=== PATIENT | female | born 1975 | race Caucasian/White ===

== ENCOUNTER 2021-11-04 14:30 | Outpatient (RCR) | payer OTHER, SELFPAY | END 2021-11-28 14:21 | disposition home or self-care (01) | PROVIDERS: Visit Provider Physician Assistant | DX: S46.211A Strain of muscle, fascia and tendon of other parts of biceps, right arm, initial encounter (principal); Z51.89 Encounter for other specified aftercare | CPT/HCPCS: 97110; 97140; 97162 ==

== ENCOUNTER 2022-09-05 09:00 | Outpatient (RCR) | payer OTHER, SELFPAY | END 2022-09-05 12:34 | disposition home or self-care (01) | PROVIDERS: PCP Physician Assistant; Visit Provider Physician Assistant | DX: M25.531 Pain in right wrist (principal); Z51.89 Encounter for other specified aftercare | CPT/HCPCS: 97033; 97035; 97110; 97140; 97165; 97535; L3806; L3933; X5282 ==

== ENCOUNTER 2022-10-10 10:01 | Outpatient (CLI) | payer OTHER, SELFPAY ==
--- NOTE | 2022-10-10 10:15 | MR_ITS ---
[facility] [address] [facility] [address] Phone:?[phone] Fax:?[phone] Referring Physician Information: Marshall Cortez [address] [facility] [address] Phone:?[phone] Fax:?[phone] Patient:Carlin Barnes D.O.B:?1975 Sex:?Female Phone:?[phone] [facility] MRN:?[id number] Exam Date:?10/10/2022 EXAM: MRI of the RIGHT SHOULDER, without contrast CLINICAL: Right shoulder pain. Evaluate for rotator cuff tear. COMPARISONS: X-ray dated 09/29/2022. TECHNICAL: Multiplanar multisequence MRI of the right shoulder was obtained. SEDATION: None. CONTRAST: None. FINDINGS: Rotator cuff: Supraspinatus/Infraspinatus: There is mild to moderate tendinosis of the distal supraspinatus and infraspinatus tendons with mild to moderate superimposed partial interstitial insertional tearing of the distal supraspinatus tendon seen on coronal series 4 images 10-11. Minimal focal partial interstitial tearing of the distal infraspinatus tendon on coronal series 4 image 14. No significant fatty atrophy of the muscle bellies. Teres minor: No tendinosis, tear or atrophy. Subscapularis: Mild tendinosis of the distal tendon. No significant tendon tear and no significant fatty atrophy of the muscle belly. Bursae: Subacromial-subdeltoid: No significant bursal fluid. Subcoracoid: No significant bursal fluid. Coracoacromial arch: Acromion morphology: Type II. No os acromiale. Acromiohumeral space: Within normal limits. Coracohumeral space: Within normal limits. Biceps tendon, long head: Mild tendinosis of the intra-articular tendon. No significant tendon tear or displacement. Glenohumeral joint: Physiologic volume of joint fluid. Articular cartilage: No discrete chondral defects identified. Capsule: No convincing evidence of capsular thickening or injury. Labrum: No discrete labral tear identified. No perilabral cyst identified. Bones: No suspicious marrow signal alteration, fracture or dislocation. Acromioclavicular joint: Mild changes of arthrosis. No AC joint injury/widening. IMPRESSION: 1. Mild to moderate tendinosis with superimposed partial interstitial insertional tearing of the distal supraspinatus and infraspinatus tendons as above. Mild subscapularis tendinosis. No full-thickness or retracted rotator cuff tendon tear. 2. Mild tendinosis of the intra-articular long head biceps tendon. 3. Mild AC joint arthrosis. 4. No evidence of fracture. JCZ Electronically signed on 10/14/2022 8:25:00 AM by Simeon Ty D.O.
== END 2022-10-10 10:02 | disposition home or self-care (01) ==
LOC: MRI 10:02
PROVIDERS: PCP Nurse Practitioner Family; Visit Provider Nurse Practitioner Family
DX: M25.511 Pain in right shoulder (principal); M75.101 Unspecified rotator cuff tear or rupture of right shoulder, not specified as traumatic; M19.011 Primary osteoarthritis, right shoulder
CPT/HCPCS: 73221

== ENCOUNTER 2022-12-26 12:43 | Outpatient (CLI) | payer OTHER, SELFPAY ==
--- NOTE | 2022-12-26 13:00 | CRLHL7_ITS ---
For Patients: As a result of the Century Cures Act, medical imaging exams and procedure reports are released immediately into your electronic medical record. You may view this report before your referring provider. If you have questions, please contact your health care provider. BILATERAL SCREENING MAMMOGRAM WITH COMPUTER-AIDED DETECTION TECHNIQUE: CC and MLO views were obtained. These mammographic images have been obtained using full-field digital technique. These mammographic images were interpreted with the benefit of computer-aided detection. COMPARISON FILM: 07/22/21, 07/11/20. FINDINGS: There are scattered areas of fibroglandular density IMPRESSION: There is no radiographic evidence for malignancy. ASSESSMENT: BI-RADS Category 1: Negative RECOMMENDATION: Routine screening mammogram in 1 year. A lay language report of this examination will be provided to the patient. Ronnie Diallo M.D. Diagnostic Radiologist [email or web address] JONH/ginny gross/Dictated by: Ronnie Diallo MD @ 12/29/2022 10:08:00 AM (Electronically Signed)
== END 2022-12-26 12:44 | disposition home or self-care (01) ==
LOC: MAMMO 12:44
PROVIDERS: PCP Nurse Practitioner Family; Visit Provider Nurse Practitioner Family
DX: Z12.31 Encounter for screening mammogram for malignant neoplasm of breast (principal)
CPT/HCPCS: 77063; 77067

== ENCOUNTER 2023-01-02 13:28 | Outpatient (CLI) | payer OTHER, SELFPAY | END 2023-01-02 13:29 | disposition home or self-care (01) | PROVIDERS: PCP Nurse Practitioner Family; Visit Provider Nurse Practitioner Family | DX: N92.1 Excessive and frequent menstruation with irregular cycle (principal) | CPT/HCPCS: 84443; 85025 ==

== ENCOUNTER 2023-01-12 10:34 | Outpatient (CLI) | payer OTHER, SELFPAY ==
--- NOTE | 2023-01-12 10:45 | CRLHL7_ITS ---
For Patients: As a result of the Century Cures Act, medical imaging exams and procedure reports are released immediately into your electronic medical record. You may view this report before your referring provider. If you have questions, please contact your health care provider. INDICATION: heavy and frequent bleeding COMPARISON: none TECHNIQUE: 2D gallagher scale and color Doppler images were acquired of the pelvis using a transabdominal and transvaginal approach. FINDINGS: Sonographic images demonstrate a normal size and smooth outer contour of the uterus. Uterus measures 11.2 cm in length by 4.7 cm in AP diameter by 5.6 cm in transverse dimension. The myometrium has a normal uniform echotexture. The endometrial lining measures 10 mm in composite thickness. The right ovary measures 4.8 x 2.1 x 3.4 cm in size and the left ovary measures 3.3 x 1.9 x 1.5 cm. Dominant follicle right ovary is present measuring 1.5 cm. The ovaries demonstrate normal arterial and venous blood flow on color Doppler analysis. There are no suspicious fluid collections within the cul-de-sac. IMPRESSION: Endometrial thickness 1 cm. No endometrial fluid or uterine fibroid. Dictated by Ronnie Diallo MD @ 01/14/2023 7:01:36 AM (Electronically Signed)
== END 2023-01-12 10:35 | disposition home or self-care (01) ==
PROVIDERS: PCP Nurse Practitioner Family; Visit Provider Nurse Practitioner Family
DX: N92.1 Excessive and frequent menstruation with irregular cycle (principal); R93.89 Abnormal findings on diagnostic imaging of other specified body structures
CPT/HCPCS: 76830; 76856

== ENCOUNTER 2023-03-06 14:00 | Outpatient (RCR) | payer OTHER, SELFPAY | END 2023-06-23 14:44 | disposition home or self-care (01) | PROVIDERS: PCP Nurse Practitioner Family; Visit Provider Orthopaedic Surgery Sports Medicine | DX: M75.01 Adhesive capsulitis of right shoulder (principal); M25.511 Pain in right shoulder; Z74.09 Other reduced mobility; R29.898 Other symptoms and signs involving the musculoskeletal system; Z51.89 Encounter for other specified aftercare | CPT/HCPCS: 97110; 97140; 97161 ==

== ENCOUNTER 2023-04-28 09:16 | Outpatient (CLI) | payer OTHER, SELFPAY | END 2023-04-28 09:17 | disposition home or self-care (01) | PROVIDERS: PCP Nurse Practitioner Family; Visit Provider Nurse Practitioner Family | DX: I10 Essential (primary) hypertension (principal); Z83.49 Family history of other endocrine, nutritional and metabolic diseases | CPT/HCPCS: 80048; 84443 ==

== ENCOUNTER 2023-06-29 07:03 | Outpatient (CLI) | payer OTHER, SELFPAY ==
--- OUTSIDE RECORDS SUMMARY | 2023-06-29 07:05 | XMS_ITS | Clinical Summary ---
Author Name Unknown Organization [facility] Address [place], [place] [address] Care Team Providers Care Hide Worker Name Role Phone Unavailable Primary Care Provider Unavailabl e Allergies Active Allergy Reactions Criticality Noted Date Comments Amoxicillin-Pot Clavulanate Diarrhea 03/12/19 23 Venlafaxine Analogues Dizziness 09/08/2007 Medications Medication Sig Dispensed Refills Start Date End Date Status busPIRone (BUSPAR) 15 mg tabletIndications:Dys thymic disorder Take 1 Tablet (15 mg) by mouth 2 times daily. 180 Tablet 3 07/18/2021 Active SUMAtriptan (IMITREX) 50 mg tabletIndications:Men strual migraine without status migrainosus, not intractable TAKE 1 TO 2 TABLETS BY MOUTH EVERY 2 HOURS IF NEEDED FOR MIGRAINE, MAX DOSE 200MG (4 TABLETS) PER DAY 27 Tablet 5 07/18/2021 Active buPROPion (WELLBUTRIN XL) 150 mg Extended-Release tabletIndications:Dys thymic disorder TAKE 1 TABLET BY MOUTH IN THE MORNING 90 Tablet 09/18/2022 Active Active Problems Problem Noted Date Diagnosed Date ASCUS of cervix with negative high risk HPV 03/2020 Overview: 01/10/2004 LSIL 01/29/2004 [place]: VANESAS I 05/20/2005 NIL 08/18/2006 NIL 11/17/2007 NIL 04/20/2009 NIL 11/13/2015 NIL/HPV Negative 07/11/2020 ASCUS/HPV Negative Plan: Pap/HPV due 07/2023 Chondromalacia of patellofemoral joint 4 Patellofemoral pain syndrome 10/28/2013 Vitamin D deficiency 03/18/2013 Dysthymic disorder 02/23/2007 Migraine, unspecified, witho ut mention of intractable migraine without mention of status migrainosus 05/01/2006 Allergic rhinitis, cause unspecified 05/01/2006 Resolved Problems Problem Noted Date Diagnosed Date Resolved Date Dysthymic disorder 06/09/2013 5 Supervision of other normal 04/07/2011 06/23/2019 Panic disorder without agoraphobia 10/20/2007 05/22/2014 Major depressive disorder, r ecurrent episode, moderate 10/20/2007 05/22/2014 Social phobia 10/20/2007 05/22/2014 Anxiety state, unspecified 05/01/2006 0 02/23/2007 Depressive disorder, not elsewhere classified 05/02/19 07 02/23/2007 Immunizations Name Administration Dates Next Due COVID-19 vaccine ([employer] NTVidly 30mcg/0.3mL) PF, MDV 02/06/2021,03/27/2020,03/06/2020 Influenza, IIV3 (Age >=3 years) 02/24/2013 Influenza, IIV4 04/12/2018, 7,11/13/2015,01/13/20 15 Influenza, Injectable, Mdck, Quadrivalent, W/preservative 11/26/2020 MMR 04/12/2018 Td (Age >=7 Years) 01/10/2004 Tdap 07/11/2020,01/02/2010 Family History Medical History Relation Name Comments Alcoholism Brother Depression Brother Multiple sclerosis Brother Other Father inclusion body myositis Sjogren's syndrome Father Lupus Maternal Aunt Multiple sclerosis Maternal Aunt Alcohol/Drug Maternal Grandfather Other Maternal Grandmother Alzheim ers; her four sisters had same Multiple sclerosis Maternal Uncle Depression Mother Heart Disease Mother pacemaker Hypertension Mother Seizures Mother and maybe aneur ysm? Diabetes Other Alcohol/Drug Paternal Grandfather Bipolar disorder Sister Hypothyroidism Sister Anesthesia Malignant Hyperthermia No Family History Cancer-breast No Family History Cancer-ovarian No Family History Relation Name Status Comments Brother Father Maternal Aunt Maternal Grandfather Maternal Grandmother Maternal Uncle Mother Other Paternal Grandfather Sister Social History Tobacco Use Types Packs/Day Years Used Date Smoking Tobacco: Former Cigarettes 0.5 3 0 09/10/2007 - 09/09/2010 Smokeless Tobacco: Never Tobacco Cessation:Counseling Given: Yes Alcohol Use Standard Drinks/Week Comments Yes 0 (1 standard drink = 0.6 oz pur e alcohol) 2 drinks per week PHQ-2 Answer Date Recorded PHQ-2 TOTAL SCORE 2 07/18/2021 Social Connections Answer Date Recorded Frequency of Communication with Friends and Fami ly Not on file 03/12/2023 Financial Resource Strain Answer Date R ecorded Difficulty of Paying Living Expenses 3 03/11/2022 Difficulty of Paying Living Expenses Not on file 03/11/2022 Food Insecurity Answer Date Recorded Worried About Running Out of Food in the Last Ye ar 1 03/11/2022 Transportation Needs Answer Date Record ed Lack of Transportation (Medical) 1 03/11/2022 Housing Stability Answer Date Recorded Unable to Pay for Housing in the Last Year 1 03/11/2022 Sex and Gender Information Value Date Recorded Sex Assigned at Not on file Gender Identity Not on file Sexual Orientation Not on file Obstetrics History Para Term AB IAB SAB Ectopic Multiple Livin g Live Births 2 2 2 2 2 Date Outcome GA Total Labor Labor/2nd/3rd Weight Sex Delivery Anes PTL Dodie A1 A5 Name Cl in 1995 Term Marcie ng Comments:adopted out, s/o aware 04/07 Term 39w 1d 3.6 kg (7 lb 15 oz) F Vag Marcie ng 8 10 BG SAMI Delivery Location:[facility] Last Filed Vital Signs Vital Sign Reading Time Taken Comments Blood Pressure 131/94 03/12/2022 1:40 PM CUSTOMER PROFESSIONAL Pulse 101 03/12/2022 1:40 PM CUSTOMER PROFESSIONAL Temperature 36.6 ??C (97.9 ??F) 06/15/2018 11:23 AM C DT Respiratory Rate 16 04/09/2011 8:15 AM CUSTOMER PROFESSIONAL Oxygen Saturation 97% 03/12/2022 1:40 PM CUSTOMER PROFESSIONAL Inhaled Oxygen Concentration - - Weight 82.1 kg (181 lb) 03/12/2022 1:40 PM CUSTOMER PROFESSIONAL Height 160.5 cm (5' 3.19) 03/12/2022 1:40 PM CS T Body Mass Index 31.87 03/12/2022 1:40 PM CUSTOMER PROFESSIONAL Plan of Treatment Health Maintenance Due Date Last Done Comments HIV for age 15-65 1992 Depression screening for age 12+ 07/18/2022 07/18/2021, 07/11/2020, 08/29/2019, Additional history exists Colonoscopy through age 75 2022 Mammogram for age 45-75 2022 07/22/2021, 07/11 COVID-19 vaccine series ( season) 2022 02/06/2021, 03/27/2020, 03/06/2020 BMI (ht and wt on same day) for age 18+ 03/12/2023 03/12/2022, 07/18/2021, 07/27/2020, Additional history exists Pap test for age 21-65 07/12/2023 , 07/11/2020, 11/13/2015, Additional history exists Influenza for age 9-49 10/11/2023 , 04/12/2018, 10/07/2016, Additional history exists Lipids for age 45-75 07/18/2026 07/18/2021, 07/11/2020, 03/18/2013 Tetanus booster 07/11/2030 07/11/2020, 12/11, 01/10/2004 Tdap Completed 07/11/2020, 01/02/2010 Hepatitis C screening for age 18-79 Completed 07/18/2021 Pneumococcal series for age 6-64 Aged Out No longer eligible based on patient's age to complete this topic Procedures Procedure Name Priority Date/Time Associated Diagnosis Comments XR MAMMO BILAT SCREENING Routine 07/22/2021 1:29 PM CDT Visit for screening mammogram ANTI HCV Routine 07/18/2021 3:35 PM CDT Need for hepatitis C screening test LIPID PANEL W REFLEX MEASURED LDL Routine 07/18/2021 3:35 PM CDT Hyperlipidemia, unspecified hyperlipidemia type LEGAL COMPLIANCE OFFICER THIN PREP PAP SCREEN IMAGED Routine 07/11/2020 11:14 AM CDT Screening for malignant neoplasm of cervix from Last 3 Months or Most Recently Relevant to Health Maintenance Results * XR MAMMO BILAT SCREENING (07/22/2021 1:29 PM CDT) Anatomical Region Laterality Modality BREASTS, Breast Left, Breast Right Bilateral Mammography Impressions 07/23/2021 3:57 PM CDT ??There is no radiographic evidence for malignancy. ??Recommend annual mammograms. MAMMOGRAM ASSESSMENT: ??ACR 1 Negative PATIENTS: You will also receive a letter with your examination results in an easy to read format. ??If you have questions about your results, please contact your referring provider. Narrative 07/23/2021 3:57 PM CDT For Patients: As a result of the Cures Act, medical imaging exams and procedure reports are released immediately into your electronic medical record. You may view this report before your referring provider. If you have questions, please contact your health care provider. XR MAMMO BILAT SCREENING [[id number]] CLINICAL HISTORY: ??This is an asymptomatic 45 y.o. patient. INDICATION FOR EXAM: Mammogram Screening. TECHNIQUE: CC & MLO views were obtained. ??This study was evaluated with the assistance of Computer-Aided Detection. COMPARISON FILM: Yes 07/11/20 [facility] ?? FINDINGS: ??The breasts have scattered areas of fibroglandular density. There are no dominant masses, suspicious micro calcifications or areas of architectural distortion. Livia Patel PA MAMMO * (ABNORMAL) LIPID PANEL W REFLEX MEASURED LDL (07/18/2021 3:35 PM CDT) CHOLESTEROL,TOTAL 210(H) 100 - 199 mg/dL 07/19/2021 3:32 PM CDT [facility] TRAL [facility] TRIGLYCERIDES 107 <150 mg/dL 07/19/2021 3:32 PM CDT [facility] TR[facility] HDL CHOLESTEROL 44 >40 mg/dL 3:32 PM CDT [facility] NON-HDL CHOLESTEROL 166(H) <145 mg/dl 07/19/2021 3:32 PM CDT [facility] CHOL/HDL RATIO 4.77(H) <4.50 07/19/2021 3:32 PM CDT [facility] LDL CHOLESTEROL 145(H) <=130 mg/dL 07/19/2021 3:32 PM CDT [facility] VLDL CHOLESTEROL 21 <=30 mg/dL 07/19/2021 3:32 PM CDT [facility] TRAL [facility] PROVIDER ORDERED STATUS RANDOM 07/19/2021 3:32 PM CDT [facility] TRA [facility]ORAT[facility] Blood BLOOD SPECIMEN / Unknown Venipuncture / Unknown 07/18/2021 3:35 PM CDT 07/18/2021 3:47 PM CDT Livia TABARES CHEMISTRY Performing Organization Address City/[facility]/ZIP Co de Phone Number [facility] [address] [place] [address], * ANTI HCV (07/18/2021 3:35 PM CDT) Pathologist [facility] HEPATITIS C ANTIBODY Non-React bennett Non-React bennett 07/19/2021 3:52 PM CDT [facility] Comment:Antibodies to HCV no t detected; does not exclude the possibility of exposure to HCV. Blood BLOOD SPECIMEN / Unknown Venipuncture / Unknown 07/18/2021 3:35 PM CDT 07/18/2021 3:47 PM CDT Livia TABARES SEND OUTS Performing Organization Address City/[facility]/ZIP Co de Phone Number [facility] [address] [place] [address], * (ABNORMAL) LEGAL COMPLIANCE OFFICER THIN PREP PAP SCREEN IMAGED (07/11/2020 11:14 AM CDT) Pathologist [facility] Case Report Gynecologic Cytology Report ? Case: [id number] ? Authorizing Provider: ??Amanda, Livia Gifford, RAYSHAWN ?Collected: ? 07/11/2020 1114 ? [facility] ?? Received: ?07/11/2020 1156 ? Clinic ? First Screen: ?Naeem, Ashley L ? Pathologist: ? Dea Klein ? Airam, MD ? Specimen: ?LEGAL COMPLIANCE OFFICER ThinPrep Vial Screening, Cervical ? 07/24/2020 11:20 AM CDT [facility] ENTRAL LABORATORY INTERPRETATION/ RESULT ATYPICAL SQUAMOUS CELLS OF UNDETERMINED SIGNIFICANCE (ASCUS)(A) (none) 07/24/2020 11:20 AM CDT [facility]- ENTRMD LABORATORY IMEN ADEQUACY Satisfactory for evaluation Endocervical component present 07/24/2020 11:20 AM CDT [facility]- ENTRAL LABORATORY HPV REQUEST HPV and PAP 07/24/2020 11:20 AM CDT [facility] ENTRAL LAB[facility]AT[facility] Date of LMP 07/02/20 07/24/2020 11:20 AM CDT [facility] ENTRAL LABORATORY Last Pap Date 11/13/15 07/24/2020 11:20 AM CDT [facility] ENTRAL LAB[facility]ATORY Last Pap Result NIL 11:20 AM CDT [facility] ENTRAL LABORATORY Abnormal Pap or [place] Bx in last 5 years No 07/24/2020 11:20 AM CDT [facility] ENTRAL LAB[facility]ATORY Menstrual Status Regular Periods 07/24/2020 11:20 AM CDT [facility] ENTRAL LABORATORY [place] Bx Done Today No 07/24/2020 11:20 AM CDT [facility] ENTRAL LABORATORY Additional Information None given 07/24/2020 11:20 AM CDT [facility] Comment: Cytology is screened at [facility] - [address] [address] and [facility] - [address], [place] [address] and [facility] - [address] [place] [address] Interpreted at [facility] - [address] [place] [address] Automated Review Successful 07/24/2020 11:20 AM CDT [facility] ENTRAL LABORATORY Comment:Specimen processed s uccessfully by automated log pond worker device, ThinPrep Imaging System, [employer] ANCILLARY TESTING LEGAL COMPLIANCE OFFICER HPV Ordered, Please see separate report 07/24/2020 11:20 AM CDT [facility]C ENTRAL LABORATORY Note The pap test is a screening technique, not a diagnostic procedure. It is used primarily to screen for squamous cancers and precursor lesions. Published studies have shown that it is subject to both false negative and false positive results. The pap test should not be used as the sole means to diagnose or exclude pre-malignant and malignant lesions. 07/24/2020 11:20 AM CDT [facility] Other (Cervical) Non-Blood / Unknown 07/11/2020 11:14 AM CDT 07/11/2020 11:56 AM CDT Livia TABARES PATHOLOGY/CYTOLOGY [facility] [address] [place] [address], from Last 3 Months or Most Recently Relevant to Health Maintenance Advance Directives * Full Code (Latest Code Status on File) Date Activated Date Inactivated Comments 04/07/2011 9:59 PM 04/09/2011 6:10 PM * Full Code Date Activated Date Inactivated Comments 04/07/2011 3:45 PM 04/07/2011 9:59 PM
--- NOTE | 2023-06-29 07:15 | MR_ITS ---
Patient: SANJUANITA RODRIGUEZ Facility:?[facility] Patient ID:?[id number] Site Patient ID:?[id number]. Site :?1975 Study:?MRI-Knee Right WO-06/29/2023 7:52:11 AM Ordering Physician:Brittany Maddox Final Report: Indication: Right medial knee pain. Technique: Noncontrast MRI scan of the knee was performed. Comparison: Right knee radiograph 06/19/2023. Findings: Medial compartment: Mild low signal thickening of the medial collateral ligament consistent with mild chronic sprain. Intact medial meniscus. Focus of subchondral bone edema signal within the distal femur medial condyle is likely to be associated with a tiny chondral defect (coronal STIR image 18, series 5). Overall, the articular cartilage of the medial tibial femoral compartment otherwise appears well-maintained. Lateral compartment: Intact lateral stabilizing structures. Intact lateral meniscus. Intact lateral tibiofemoral articular cartilage. Cruciate ligaments: Increased signal within the anterior cruciate ligament consistent with ACL sprain, likely chronic partial tear (grade 1 versus grade 2 injury). Intact PCL. Extensor mechanism: Intact. Patellofemoral compartment: Thickening of the medial patellar retinaculum and increased signal superficial and deep to the medial patellar retinaculum consistent with retinaculum mild sprain. Normal lateral patellar retinaculum. Intact patellofemoral articular cartilage. Effusion: None. Bones: Unremarkable. No fracture or osteonecrosis. Extra-articular soft tissues: Prepatellar and pretibial subcutaneous edema. Impression: 1. MCL mild chronic sprain. 2. Medial patellar retinaculum mild sprain. 3. ACL sprain (likely chronic partial tear). 4. Tiny focus of bone marrow edema within the subchondral aspect of the distal femur medial condyle is likely to be associated with a tiny chondral defect. Dictated by Link Underwood MD @ 06/29/2023 9:10:43 AM Signed by:?Link Underwood MD @06/29/2023 9:10:43 AM (Electronic Signature)
== END 2023-06-29 07:04 | disposition home or self-care (01) ==
LOC: MRI 07:04
PROVIDERS: PCP Nurse Practitioner Family; Visit Provider Nurse Practitioner Family
DX: M25.561 Pain in right knee (principal); S83.411A Sprain of medial collateral ligament of right knee, initial encounter; S83.511A Sprain of anterior cruciate ligament of right knee, initial encounter
CPT/HCPCS: 73721

== ENCOUNTER 2023-08-26 10:29 | Outpatient (CLI) | payer OTHER, SELFPAY ==
--- OUTSIDE RECORDS SUMMARY | 2023-08-26 10:32 | XMS_ITS | Clinical Summary ---
Author Organization [employer] [facility] [employer] Address [place], [place] [address] Care Team Providers Care Machine Grainer Name Role Phone Unavailable Primary Care Provider [...] risk HPV 03/2020 Overview: 01/10/2004 LSIL 01/29/2004 [place]: VANESSA I 05/20/2005 NIL 08/18/2006 NIL 11/17/2007 NIL [...] Name Administration Dates Next Due COVID-19 vaccine ([employer] NTTxtFeedback 30mcg/0.3mL) PF, MDV 02/06/2021,03/27/2020,03/06/2020 Influenza, IIV3 (Age [...] Outcome GA Total Labor Labor/2nd/3rd Weight Sex Type Anes PTL Dodie A1 A5 Name Clin 1995 Term Living Comments:adopted out, s/o aware 012 Term 39w 1d 3.6 kg (7 lb 15 oz) F Vag Living 8 10 TOME Chanel, Delivery Location:[facility] Last Filed Vital Signs Vital Sign Reading Time Taken Comments Blood Pressure 131/94 03/12/2022 1:40 PM DRIVER'S LICENSE EXAMINER Pulse 101 03/12/2022 1:40 PM DRIVER'S LICENSE EXAMINER Temperature 36.6 ??C (97.9 ??F) 06/15/2018 11:23 AM C DT Respiratory Rate 16 04/09/2011 8:15 AM DRIVER'S LICENSE EXAMINER Oxygen Saturation 97% 03/12/2022 1:40 PM DRIVER'S LICENSE EXAMINER Inhaled Oxygen Concentration - - Weight 82.1 kg (181 lb) 03/12/2022 1:40 PM DRIVER'S LICENSE EXAMINER Height 160.5 cm (5' 3.19) 03/12/2022 1:40 PM CS T Body Mass Index 31.87 03/12/2022 1:40 PM DRIVER'S LICENSE EXAMINER Plan of Treatment Health Maintenance Due Date Last Done Comments HIV for age 15-65 1992 Depression screening for age 12+ 07/18/2022 07/18/2021, 07/11/2020, 08/29/2019, Additional history exists Colonoscopy through age 75 2022 Mammogram for age 45-75 2022 07/22/2021, 07/11 COVID-19 vaccine series (2022- season) 2022 02/06/2021, 03/27/2020, 03/06/2020 BMI (ht [...] 3:35 PM CDT Hyperlipidemia, unspecified hyperlipidemia type SHOP STEWARD THIN PREP PAP SCREEN IMAGED Routine 07/11/2020 [...] For Patients: As a result of the Century Cures Act, medical imaging exams and procedure reports are released immediately into your electronic medical record. You may view this report before your referring provider. If you have questions, please contact your health care provider. XR MAMMO BILAT SCREENING [[id number]] CLINICAL HISTORY: ??This is an asymptomatic 45 y.o. patient. INDICATION FOR EXAM: Mammogram Screening. TECHNIQUE: CC & MLO views were obtained. ??This study was evaluated with the assistance of Computer-Aided Detection. COMPARISON FILM: Yes 07/11/20 [facility] [employer] ?? FINDINGS: ??The breasts have scattered areas of fibroglandular density. There are no dominant masses, suspicious micro calcifications or areas of architectural distortion. Livia TABARES MAMMO * (ABNORMAL) LIPID PANEL W REFLEX MEASURED LDL (07/18/2021 3:35 PM CDT) CHOLESTEROL,TOTAL 210(H) 100 - 199 mg/dL 07/19/2021 3:32 PM CDT [facility] TRAL LABORATORY TRIGLYCERIDES 107 <150 mg/dL 07/19/2021 3:32 PM CDT [facility] TRAL LAB[facility]ATORY HDL CHOLESTEROL 44 >40 mg/dL 3:32 PM CDT [facility] TRAL LABORATORY NON-HDL CHOLESTEROL 166(H) <145 mg/dl 07/19/2021 3:32 PM CDT [facility] TRAL LABORATORY CHOL/HDL RATIO 4.77(H) <4.50 07/19/2021 3:32 PM CDT [facility] TRAL LABORATORY LDL CHOLESTEROL 145(H) <=130 mg/dL 07/19/2021 3:32 PM CDT [facility] TRA LABORATORY VLDL CHOLESTEROL 21 <=30 mg/dL 07/19/2021 3:32 PM CDT [facility] TRAL LABORATORY PROVIDER ORDERED STATUS RANDOM 07/19/2021 3:32 PM CDT [facility] Blood BLOOD SPECIMEN / Unknown Venipuncture / Unknown 07/18/2021 3:35 PM CDT 07/18/2021 3:47 PM CDT Livia TABARES CHEMISTRY Performing Organization Address City/[facility]/ZIP Co de Phone Number [facility] [address] [place] [address], * ANTI HCV (07/18/2021 3:35 PM CDT) HEPATITIS C ANTIBODY Non-React bennett Non-React bennett 07/19/2021 3:52 PM CDT [facility] Comment:Antibodies to HCV no t detected; does not exclude the possibility of exposure to HCV. Blood BLOOD SPECIMEN / Unknown Venipuncture / Unknown 07/18/2021 3:35 PM CDT 07/18/2021 3:47 PM CDT Livia TABARES SEND OUTS Performing Organization Address City/[facility]/ZIP Co de Phone Number [facility] [address] [place] [address], * (ABNORMAL) SHOP STEWARD THIN PREP PAP SCREEN IMAGED (07/11/2020 11:14 AM CDT) Case Report Gynecologic Cytology Report ? Case: [id number] ? Authorizing Provider: ??Livia Patel PA ?Collected: ? 07/11/2020 1114 ? [facility] ?? Received: ?07/11/2020 1156 ? Clinic ? First Screen: ?Naeem, Ashley L ? Pathologist: ? Dea Klein ? [place], ? Specimen: ?SHOP STEWARD ThinPrep Vial Screening, Cervical ? 07/24/2020 11:20 AM CDT [facility]-C ENTRAL LABORATORY INTERPRETATION/ RESULT ATYPICAL SQUAMOUS CELLS OF UNDETERMINED SIGNIFICANCE (ASCUS)(A) (none) 07/24/2020 11:20 AM CDT [facility] [employer] [facility]- ENTRTN LABORATORY IMEN ADEQUACY Satisfactory for evaluation Endocervical component present 07/24/2020 11:20 AM CDT [facility] [employer] [facility]-C ENTRTN LABORATORY HPV REQUEST HPV and PAP 07/24/2020 11:20 AM CDT [facility] [employer] [facility]-C ENTRAL LABORATORY Date of LMP 07/02/20 07/24/2020 11:20 AM CDT [facility] ENTRAL LABORATORY Last Pap Date 11/13/15 07/24/2020 11:20 AM CDT [facility] Last Pap Result NIL 11:20 AM CDT [facility] [employer] [facility] ENTRAL LABORATORY Abnormal Pap or [place] Bx in last 5 years No 07/24/2020 11:20 AM CDT [facility] ENTRAL LABORATORY Menstrual Status Regular Periods 07/24/2020 11:20 AM CDT [facility] ENTRAL LABORATORY [place] Bx Done Today No 07/24/2020 11:20 AM CDT [facility] ENTRTN LABORAT[facility] Additional Information None given 07/24/2020 11:20 AM CDT [facility] [employer] [facility]-C ENTRAL LABORATORY Comment: Cytology is screened at [facility] Laboratory - [address] [facility] [address], [place] [address] and [facility] Laboratory - [address] [place] [address] and [facility] - [address] [place] [address] Interpreted at [facility] - [address] [place] [address] Automated Review Successful 07/24/2020 11:20 AM CDT [facility] ENTRAL LABORATORY Comment:Specimen processed s uccessfully by automated drug abuse social worker device, ThinPrep Imaging System, [employer] ANCILLARY TESTING SHOP STEWARD HPV Ordered, Please see separate report 07/24/2020 11:20 AM CDT [facility]-C ENTRAL LABORATORY Note The pap test [...] and malignant lesions. 07/24/2020 11:20 AM CDT [facility]-C ENTRAL LABORATORY Other (Cervical) Non-Blood / Unknown 07/11/2020 11:14 AM CDT 07/11/2020 11:56 AM CDT Livia TABARES PATHOLOGY/CYTOLOGY [facility]-CENTRAL LABORATORY [address] [place] [address], from Last 3 Months or Most Recently Relevant to Health Maintenance Advance Directives * Full Code (Latest Code Status on File) Date Activated Date Inactivated Comments 04/07/2011 9:59 PM 04/09/2011 6:10 PM * Full Code Date Activated Date Inactivated Comments 04/07/2011 3:45 PM 04/07/2011 9:59 PM
--- NOTE | 2023-10-06 08:28 | W.PM.SLEEP ---
Sleep Study Details Details Interpreting Provider: Cami Date of Sleep Study: 08/26/23 Sleep Study Details: STUDY TYPE:? Home unattended ? BMI:? 30.8 ORDERING PROVIDER:? Cami INDICATION:? Concern about sleep apnea ? SLEEP SUMMARY:? 566 minutes monitored RESPIRATORY SUMMARY:? AHI 1.9 Low oxygen 80 0.1% of study oxygen less than 90% Snoring 88.2% PERIODIC LIMB MOVEMENTS OF SLEEP:? Not recorded CARDIAC:? Range 61-107, mean 75.2 IMPRESSION:? Primary snoring. No significant obstructive sleep apnea was observed RECOMMENDATION: If sleep disorder strongly suspected with would recommend an in-lab study.
== END 2023-08-26 10:30 | disposition home or self-care (01) ==
LOC: SLEEP 10:29
PROVIDERS: PCP Nurse Practitioner Family; Visit Provider Otolaryngology
DX: R06.83 Snoring (principal); G47.19 Other hypersomnia
CPT/HCPCS: 95806

== ENCOUNTER 2023-10-16 11:00 | Outpatient (CLI) | payer OTHER, SELFPAY ==
--- OUTSIDE RECORDS SUMMARY | 2023-10-31 06:12 | XMS_ITS | Clinical Summary ---
Author Organization [employer] Address [place], [place] [address] Care Team Providers Care Jukebox Route Driver Name Role Phone Unavailable Primary Care Provider [...] cervix with negative high risk HPV 03/2020 Overview (09/11/2020): 01/10/2004 LSIL 01/29/2004 [place]: VANESSA I 05/20/2005 NIL 08/18/2006 NIL 11/17/2007 [...] disorder, not elsewhere classified 05/02/19 07 02/23/2007 Encounters Date Type Department Care Team Description 10/16/[address] [facility] [phone] Brittany Prater RAILCAR SWITCHER from Last 3 Months Immunizations Name Administration Dates Next Due COVID-19 vaccine ([employer] NTRoadnet 30mcg/0.3mL) PF, MDV 02/06/2021,03/27/2020,03/06/2020 Influenza, IIV3 (Age [...] 15 oz) F Vag Living 8 10 BG SAMI Delivery Location:[facility] Last Filed Vital Signs Vital Sign Reading Time Taken Comments Blood Pressure 131/94 03/12/2022 1:40 PM MUSEUM REGISTRAR Pulse 101 03/12/2022 1:40 PM MUSEUM REGISTRAR Temperature 36.6 ??C (97.9 ??F) 06/15/2018 11:23 AM C DT Respiratory Rate 16 04/09/2011 8:15 AM MUSEUM REGISTRAR Oxygen Saturation 97% 03/12/2022 1:40 PM MUSEUM REGISTRAR Inhaled Oxygen Concentration - - Weight 82.1 kg (181 lb) 03/12/2022 1:40 PM MUSEUM REGISTRAR Height 160.5 cm (5' 3.19) 03/12/2022 1:40 PM CS T Body Mass Index 31.87 03/12/2022 1:40 PM MUSEUM REGISTRAR Plan of Treatment Health Maintenance Due Date Last Done Comments HIV for age 15-65 1992 Depression screening for age 12+ 07/18/2022 07/18/2021, 07/11/2020, 08/29/2019, Additional history exists Colonoscopy through age 75 2022 Mammogram for age 45-75 2022 07/22/2021, 07/11 BMI (ht and wt on same day) for age 18+ 03/12/2023 03/12/2022, 07/18/2021, 07/27/2020, Additional history exists COVID-19 vaccine series (2022- season) 2023 02/06/2021, 03/27/2020, 03/06/2020 Influenza for age 9-49 10/11/2023 , 04/12/2018, 10/07/2016, Additional history exists Lipids for age 45-75 07/18/2026 07/18/2021, 07/11/2020, 03/18/2013 Pap test for age 21-65 10/15/2026 , 10/16/2023, 07/11/2020, Additional history exists Tetanus booster 07/11/2030 07/11/2020, 12/11, 01/10/2004 Tdap Completed 07/11/2020, 01/02/2010 Hepatitis C screening for age 18-79 Completed 07/18/2021 Pneumococcal series for age 6-64 Aged Out No longer eligible based on patient's age to complete this topic Procedures Procedure Name Priority Date/Time Associated Diagnosis Comments LAB TRACKING EVENT Routine 10/16/2023 11 :05 AM CDT DIE REPAIR MACHINIST THIN PREP PAP SCREEN IMAGED Routine 10/16/2023 11:05 AM CDT HPV HIGH RISK Routine 10/16/2023 11:05 AM CDT XR MAMMO BILAT SCREENING Routine 07/22/2021 1:29 PM CDT Visit for screening mammogram ANTI HCV Routine 07/18/2021 3:35 PM CDT Need for hepatitis C screening test LIPID PANEL W REFLEX MEASURED LDL Routine 07/18/2021 3:35 PM CDT Hyperlipidemia, unspecified hyperlipidemia type from Last 3 Months or Most Recently Relevant to Health Maintenance Results * LAB TRACKING EVENT (10/16/2023 11:05 AM CDT) Other (Other) Client Collect / Unknown 10/16/2023 11:05 AM CDT 10/16/2023 10:28 PM CDT Brittany Prater NP LAB BILL ONLY [facility]-CENTRAL LABORATORY [address] [place] [address], * DIE REPAIR MACHINIST THIN PREP PAP SCREEN IMAGED (10/16/2023 11:05 AM CDT) Case Report Gynecologic Cytology Report ? Case: [id number] ? Authorizing Provider: ??Brittany Prater, DENISE ?Collected: ? 10/16/2023 1105 ? Ordering Location: ? [facility] ?Received: ?10/20/2023 0848 ? First Screen: ?Baccam, Minie ? Rescreen: ?Erin Mtz ? Specimen: ?DIE REPAIR MACHINIST ThinPrep Vial Screening, Cervical ? 10/30/2023 10:54 AM CDT [facility]-C ENTRAL LABORATORY INTERPRETATION/ RESULT NEGATIVE FOR INTRAEPITHELIAL LESION OR MALIGNANCY (NIL) (none) 10/30/2023 10:54 AM CDT [facility] [employer] LABORATORY- ENTRAL LABORATORY IMEN ADEQUACY Satisfactory for evaluation Endocervical component present 10/30/2023 10:54 AM CDT [facility] ENTRAL LAB[facility] HPV REQUEST HPV and PAP 10/30/2023 10:54 AM CDT [facility]-C ENTRAL LABORATORY Date of LMP 09/13/2023 10/30/2023 10:54 AM CDT [facility] [employer] [facility]-C ENTRAL LABORATORY Last Pap Date 10/30/2023 10:54 AM CDT [facility] [employer] [facility]-C ENTRAL LABORATORY Comment:2020 Last Pap Result ASCUS 10:54 AM CDT [facility] [employer] LABOR[facility]- ENTRAL LABORATORY Comment:-HPV Abnormal Pap or [place] Bx in last 5 years No 10/30/2023 10:54 AM CDT [facility] [employer] [facility]-C ENTRAL LABORATORY Menstrual Status Regular Periods 10/30/2023 10:54 AM CDT [facility] [employer] [facility]-C ENTRAL LABORATORY [place] Bx Done Today No 10/30/2023 10:54 AM CDT [facility] [employer] [facility]-C ENTRAL LABORATORY Additional Information 10/30/2023 10:54 AM CDT [facility] [employer] LABORAT[facility]-C ENTRAL LABORATORY Comment: Interpreted at [employer] [facility] Laboratory - [address] [place] [address] [place] [id number] Automated Review Successful 10/30/2023 10:54 AM CDT [facility] ENTRWV LABORATORY Comment:Specimen processed s uccessfully by automated medication manager device, ThinPrep Imaging System, [employer] ANCILLARY TESTING DIE REPAIR MACHINIST HPV Ordered, Please see separate report 10/30/2023 10:54 AM CDT [facility] Note The pap test is a screening technique, not a diagnostic procedure. It is used primarily to screen for squamous cancers and precursor lesions. Published studies have shown that it is subject to both false negative and false positive results. The pap test should not be used as the sole means to diagnose or exclude pre-malignant and malignant lesions. 10/30/2023 10:54 AM CDT [facility] LAB[facility] Other (Cervical) 10/16/2023 11:05 AM CDT 10/20/2023 8:48 AM CDT Brittany Prater NP PATHOLOGY/CYTOLOGY Performing Organization Address [facility] de Phone Number [facility] [address] [place] [address], * HPV HIGH RISK (10/16/2023 11:05 AM CDT) TYPE 16 Negative Negative 10/22/2023 3:06 PM CDT [facility] TRAL LABORATORY TYPE 18 Negative Negative 10/22/2023 3:06 PM CDT [facility] TR[facility] LAB[facility] OTHER HIGH RISK TYPES Negative Negative 10/22/2023 3:06 PM CDT [facility] Other (Cervical) 10/16/2023 11:05 AM CDT 10/20/2023 8:48 AM CDT Narrative [employer] [facility] - 10/22/2023 3:06 PM CDT HPV types 16, 18, 31, 33, 35, 39, 45, 51, 52, 56, 58, 59, 66 and 68 DNA were undetectable or below the pre-set threshold. Methodology: [address] HPV Test Brittany Prater NP MICROBIOLOGY Performing Organization Address [facility] [[email or web address]] Co de Phone Number [employer] [facility] [address] [place], [place] [address] * XR MAMMO BILAT SCREENING (07/22/2021 1:29 [...] health care provider. XR MAMMO BILAT SCREENING [[id number]] CLINICAL HISTORY: ??This is an asymptomatic 45 y.o. patient. INDICATION FOR EXAM: Mammogram Screening. TECHNIQUE: CC & MLO views were obtained. ??This study was evaluated with the assistance of Computer-Aided Detection. COMPARISON FILM: Yes 07/11/20 [employer] ?? FINDINGS: ??The breasts have scattered areas of fibroglandular density. There are no dominant masses, suspicious micro calcifications or areas of architectural distortion. Livia TABARES MAMMO * (ABNORMAL) LIPID PANEL W REFLEX MEASURED LDL (07/18/2021 3:35 PM CDT) CHOLESTEROL,TOTAL 210(H) 100 - 199 mg/dL 07/19/2021 3:32 PM CDT [facility] TRAL LABORAT[facility] TRIGLYCERIDES 107 <150 mg/dL 07/19/2021 3:32 PM CDT [facility] HDL CHOLESTEROL 44 >40 mg/dL 3:32 PM CDT [facility] NON-HDL CHOLESTEROL 166(H) <145 mg/dl 07/19/2021 3:32 PM CDT [facility] CHOL/HDL RATIO 4.77(H) <4.50 07/19/2021 3:32 PM CDT [facility] TR[facility] LABORAT[facility] LDL CHOLESTEROL 145(H) <=130 mg/dL 07/19/2021 3:32 PM CDT [facility] TR[facility] LAB[facility] VLDL CHOLESTEROL 21 <=30 mg/dL 07/19/2021 3:32 PM CDT [facility] TRAL LABORATORY PROVIDER ORDERED STATUS RANDOM 07/19/2021 3:32 PM CDT [facility] TR[facility] LAB[facility] Blood BLOOD SPECIMEN / Unknown Venipuncture / Unknown 07/18/2021 3:35 PM CDT 07/18/2021 3:47 PM CDT Livia TABARES CHEMISTRY [employer] [facility] [address] [place] [address], * ANTI HCV (07/18/2021 3:35 PM CDT) HEPATITIS C ANTIBODY Non-React bennett Non-React bennett 07/19/2021 3:52 PM CDT [facility] TR[facility] LAB[facility] Comment:Antibodies to HCV no t detected; does not exclude the possibility of exposure to HCV. Blood BLOOD SPECIMEN / Unknown Venipuncture / Unknown 07/18/2021 3:35 PM CDT 07/18/2021 3:47 PM CDT Livia TABARES SEND OUTS [employer] [facility] [address] [place] [address], from Last 3 Months or Most Recently Relevant to Health Maintenance Advance Directives * Full Code (Latest Code Status on File) Date Activated Date Inactivated Comments 04/07/2011 9:59 PM 04/09/2011 6:10 PM * Full Code Date Activated Date Inactivated Comments 04/07/2011 3:45 PM 04/07/2011 9:59 PM
== END 2023-10-16 11:01 | disposition home or self-care (01) ==
LOC: NFLDREF 10-31 06:10
PROVIDERS: PCP Nurse Practitioner Family; Referring Provider Nurse Practitioner Family; Visit Provider Nurse Practitioner Family
DX: Z12.4 Encounter for screening for malignant neoplasm of cervix (principal)
CPT/HCPCS: 87624

== ENCOUNTER 2024-04-07 09:01 | Outpatient (CLI) | payer OTHER, SELFPAY | END 2024-04-07 09:02 | disposition home or self-care (01) | LOC: MRI 09:02 | PROVIDERS: PCP Nurse Practitioner Family; Visit Provider Nurse Practitioner Family | DX: M25.511 Pain in right shoulder (principal); M75.101 Unspecified rotator cuff tear or rupture of right shoulder, not specified as traumatic | CPT/HCPCS: 73221 ==

== ENCOUNTER 2024-11-17 08:31 | Outpatient (CLI) | payer OTHER, SELFPAY | END 2024-11-17 08:32 | disposition home or self-care (01) | PROVIDERS: PCP Nurse Practitioner Family; Visit Provider Nurse Practitioner Family | DX: Z00.00 Encounter for general adult medical examination without abnormal findings (principal); I10 Essential (primary) hypertension; E55.9 Vitamin D deficiency, unspecified; M25.50 Pain in unspecified joint; R68.89 Other general symptoms and signs; Z13.0 Encounter for screening for diseases of the blood and blood-forming organs and certain disorders involving the immune mechanism | CPT/HCPCS: 80053; 80061; 82306; 82784; 84443; 84550; 85025; 85651; 86038; 86140; 86200; 86231; 86258; 86364; 86376; 86431 ==